=== PATIENT | female | born 1985 | race Caucasian/White ===

== ENCOUNTER → 2020-05-25 13:03 | Outpatient (BNVA) | payer OTHER, SELFPAY | PROVIDERS: PCP Physician Assistant Medical; Referring Provider Physician Assistant Medical; Visit Provider Student in an Organized Health Care Education/Training Program | DX: Z76.89 Persons encountering health services in other specified circumstances (principal) ==

== ENCOUNTER 2020-06-30 13:53 | Outpatient (REF) | payer OTHER, SELFPAY ==
--- NOTE | 2020-06-30 13:57 | MR_ITS ---
EXAMINATION: MR PELVIS WITHOUT CONTRAST CLINICAL INFORMATION: Lower back pain at multiple sites. Polyarthralgia. COMPARISON: Radiographs from 11/07/2019 TECHNIQUE: Multisequence multidimensional MR acquisition of the pelvis is performed without IV contrast. FINDINGS: There is no fracture or malalignment. No bone marrow signal abnormality. The sacrum is intact. The sacroiliac joints are symmetric. No fluid along the sacroiliac joints. No abnormal sclerosis. No fusion. No erosions. The hips are appropriately aligned. Joint spaces are maintained. No hip joint effusion. The pelvic musculature is symmetric. No muscular edema. Trace fluid is seen bilaterally adjacent to the femoral greater trochanters. This may represent mild trochanteric bursitis versus tendinosis of the gluteus medius/minimus bilaterally. Anteverted uterus. 0.9 cm. No uterine mass. No adnexal mass. Numerous bilateral ovarian follicles are noted. The largest on the right measures 1.5 cm. There are at least 10 follicles seen in both ovaries. There is trace pelvic free fluid which is likely physiologic. No lymphadenopathy. No abdominal wall hernia. The remaining visualized intrapelvic structures show no acute abnormality. MR/MR pelvis wo con IMPRESSION: 1. No suspicious osseous abnormality. No bone marrow signal abnormality. Normal appearance of the sacroiliac joints. 2. Mild edema seen overlying the greater trochanter of the femurs bilaterally. This may represent mild trochanteric bursitis versus tendinosis of the gluteus medius/minimus. 3. Multiple bilateral ovarian follicles are seen. Correlate for PCOS.
== END 2020-06-30 13:54 | disposition home or self-care (01) ==
LOC: HO.MRI 13:53
PROVIDERS: PCP Pediatrics; Visit Provider Student in an Organized Health Care Education/Training Program
DX: M54.5 Low back pain (principal); M25.50 Pain in unspecified joint; L40.9 Psoriasis, unspecified
CPT/HCPCS: 72195

== ENCOUNTER → 2020-08-24 13:42 | Outpatient (BNVA) | payer OTHER, SELFPAY | PROVIDERS: PCP Pediatrics; Visit Provider Student in an Organized Health Care Education/Training Program | DX: M25.50 Pain in unspecified joint (principal); L40.9 Psoriasis, unspecified; M54.5 Low back pain | CPT/HCPCS: 99212 ==

== ENCOUNTER → 2020-10-20 11:12 | Outpatient (BNVA) | payer OTHER, SELFPAY | PROVIDERS: Visit Provider Student in an Organized Health Care Education/Training Program | DX: M25.50 Pain in unspecified joint (principal); M54.5 Low back pain; L40.9 Psoriasis, unspecified | CPT/HCPCS: 99212 ==

== ENCOUNTER → 2021-01-27 11:37 | Outpatient (BNVA) | payer OTHER, SELFPAY | PROVIDERS: PCP Physician Assistant Medical; Visit Provider Nurse Practitioner Family | DX: M25.50 Pain in unspecified joint (principal); L40.9 Psoriasis, unspecified | CPT/HCPCS: 99212 ==

== ENCOUNTER 2021-04-07 11:24 | Outpatient (REF) | payer OTHER, SELFPAY ==
[2021-04-07 12:20] LABS: MANUAL DIFF FLAG NO
[2021-04-07 13:38] LABS: Basophils Absolute Auto 0.1 X10*3/uL (0.0-0.2); Eosinophils Absolute Auto 0.2 X10*3/uL (0.0-0.4); Eosinophils Percent Auto 2.6 % (0-4); Hematocrit 37.4 % (37.0-47.0); Imm Gran Abs Auto 0.02 X10*3/uL (0.00-0.03); Imm Gran Pct Auto 0.3 % (0.0-0.4); Lymphocytes Absolute Auto 2.3 X10*3/uL (1.2-4.9); Lymphocytes Percent Auto 33.3 % (20-40); Mean Corpuscular HGB Conc 34.8 g/dl (31.0-35.0); Mean Corpuscular Hemoglobin 35.4 pg (27.0-33.0); Mean Corpuscular Volume 101.9 fL (80.0-98.0); Mean Platelet Volume 11.1 fL (9.4-12.3); Monocytes Absolute Auto 0.6 X10*3/uL (0.1-1.2); Monocytes Percent Auto 8.3 % (2-11); Neutrophils Absolute Auto 3.8 x10*3/uL (2.0-8.3); Neutrophils Percent Auto 54.5 % (45-73); Platelet Count 233 X10*3/uL (160-400); Red Blood Count 3.67 X10*6/uL (4.20-5.50); Red Cell Distribution Width 12.1 % (11.0-16.0)
[2021-04-07 14:03] LABS: Alanine Aminotransferase 11 U/L (0-31); Albumin Level 4.3 g/dL (3.5-5.0); Alkaline Phosphatase 80 U/L (39-117); Anion Gap 13 (12-20); Aspartate Amino Transferase 18 U/L (5-31); Bilirubin Total 0.6 mg/dL (0.0-1.0); Blood Urea Nitrogen 5 mg/dL (9-16); C Reactive Protein 0.07 mg/dL (< or = 0.50); Carbon Dioxide 26 mmol/L (22-29); Chloride 101 mmol/L (96-108); Estimated Glomerular Filt Rate > 60; Glucose Random 89 mg/dL (60-115); Potassium 3.7 mmol/L (3.3-5.1); Sodium 136 mmol/L (135-145); Total Protein 7.4 g/dL (6.5-8.0)
[2021-04-07 14:49] LABS: Erythrocyte Sedimentation Rate 13 MM/HR (0-20)
== END 2021-04-07 11:25 | disposition home or self-care (01) ==
LOC: HO.LAB 11:24
PROVIDERS: PCP Pediatrics; Visit Provider Nurse Practitioner Family
DX: L40.9 Psoriasis, unspecified (principal); M25.50 Pain in unspecified joint; F17.210 Nicotine dependence, cigarettes, uncomplicated; Z79.899 Other long term (current) drug therapy
CPT/HCPCS: 36415; 80053; 85025; 85652; 86140; 99212

== ENCOUNTER 2021-10-19 12:57 | Outpatient (REF) | payer OTHER, SELFPAY ==
[2021-10-19 13:51] LABS: MANUAL DIFF FLAG NO
[2021-10-19 14:19] LABS: Basophils Percent Auto 0.5 % (0-2); Eosinophils Percent Auto 0.3 % (0-4); Hematocrit 37.3 % (37.0-47.0); Hemoglobin 12.9 g/dl (12.0-16.0); Imm Gran Abs Auto 0.01 X10*3/uL (0.00-0.03); Imm Gran Pct Auto 0.2 % (0.0-0.4); Lymphocytes Absolute Auto 2.1 X10*3/uL (1.2-4.9); Lymphocytes Percent Auto 36.5 % (20-40); Mean Corpuscular HGB Conc 34.6 g/dl (31.0-35.0); Mean Corpuscular Volume 104.2 fL (80.0-98.0); Mean Platelet Volume 10.6 fL (9.4-12.3); Monocytes Absolute Auto 0.5 X10*3/uL (0.1-1.2); Neutrophils Absolute Auto 3.2 x10*3/uL (2.0-8.3); Neutrophils Percent Auto 54.5 % (45-73); Platelet Count 247 X10*3/uL (160-400); Red Blood Count 3.58 X10*6/uL (4.20-5.50); Red Cell Distribution Width 12.2 % (11.0-16.0); White Blood Count 5.8 X10*3/uL (4.8-10.8)
[2021-10-19 14:50] LABS: Alanine Aminotransferase 23 U/L (0-31); Alkaline Phosphatase 82 U/L (39-117); Anion Gap 14 (12-20); Aspartate Amino Transferase 31 U/L (5-31); Bilirubin Total 0.4 mg/dL (0.0-1.0); Blood Urea Nitrogen 6 mg/dL (9-16); C Reactive Protein 0.09 mg/dL (< or = 0.50); Calcium 9.6 mg/dL (8.4-10.2); Carbon Dioxide 27 mmol/L (22-29); Chloride 103 mmol/L (96-108); Estimated Glomerular Filt Rate > 60; Glucose Random 76 mg/dL (60-115); Potassium 3.9 mmol/L (3.3-5.1); Sodium 140 mmol/L (135-145); Total Protein 7.3 g/dL (6.5-8.0)
[2021-10-19 15:00] LABS: Erythrocyte Sedimentation Rate 19 MM/HR (0-20)
== END 2021-10-19 12:58 | disposition home or self-care (01) ==
LOC: HO.LAB 12:57
PROVIDERS: PCP Pediatrics; Visit Provider Nurse Practitioner Family
DX: M25.50 Pain in unspecified joint (principal); L40.9 Psoriasis, unspecified
CPT/HCPCS: 36415; 80053; 85025; 85652; 86140; 99212

== ENCOUNTER 2022-01-26 15:13 | Outpatient (REF) | payer OTHER, SELFPAY ==
--- NOTE | ~2022-01-26 | XR_ITS ---
EXAMINATION: XR LUMBOSACRAL SPINE CLINICAL INFORMATION: Lower back pain. COMPARISON: Lumbar spine radiographs dated 11/07/2019. TECHNIQUE: AP and lateral views of the lumbar spine and lateral view of the lumbosacral junction. FINDINGS: Vertebral body heights and alignment are normal. The lumbar disc spaces are well-maintained. No acute fracture or spondylolisthesis is seen. There is multi-level mild lower thoracic and lumbar spondylosis. A small limbus vertebra is incidentally noted at the anterior aspect of the L4 upper endplate. The posterior elements are intact. The paravertebral soft tissues are unremarkable. XR/XR lumbar spine 2-3V IMPRESSION: 1. No acute fracture or spondylolisthesis is seen. 2. The lumbar disc spaces are well-maintained. 3. There is multi-level mild lower thoracic and lumbar spondylosis.
[2022-01-26 15:38] LABS: MANUAL DIFF FLAG NO
[2022-01-26 16:12] LABS: Basophils Absolute Auto 0.1 X10*3/uL (0.0-0.2); Basophils Percent Auto 0.9 % (0-2); Eosinophils Absolute Auto 0.1 X10*3/uL (0.0-0.4); Eosinophils Percent Auto 0.9 % (0-4); Hematocrit 38.4 % (37.0-47.0); Hemoglobin 13.1 g/dl (12.0-16.0); Imm Gran Abs Auto 0.03 X10*3/uL (0.00-0.03); Imm Gran Pct Auto 0.3 % (0.0-0.4); Lymphocytes Absolute Auto 1.9 X10*3/uL (1.2-4.9); Lymphocytes Percent Auto 19.4 % (20-40); Mean Corpuscular HGB Conc 34.1 g/dl (31.0-35.0); Mean Corpuscular Hemoglobin 35.6 pg (27.0-33.0); Mean Corpuscular Volume 104.3 fL (80.0-98.0); Mean Platelet Volume 10.3 fL (9.4-12.3); Monocytes Absolute Auto 0.6 X10*3/uL (0.1-1.2); Monocytes Percent Auto 6.4 % (2-11); Neutrophils Percent Auto 72.1 % (45-73); Platelet Count 314 X10*3/uL (160-400); Red Blood Count 3.68 X10*6/uL (4.20-5.50); Red Cell Distribution Width 12.7 % (11.0-16.0); White Blood Count 9.8 X10*3/uL (4.8-10.8)
[2022-01-26 16:41] LABS: Alanine Aminotransferase 17 U/L (0-31); Aspartate Amino Transferase 23 U/L (5-31); C Reactive Protein 0.05 mg/dL (< or = 0.50); Estimated Glomerular Filt Rate > 60
[2022-01-26 16:50] LABS: Erythrocyte Sedimentation Rate 11 MM/HR (0-20)
== END 2022-01-26 15:14 | disposition home or self-care (01) ==
LOC: HO.XRAY 15:13
PROVIDERS: Visit Provider Nurse Practitioner Family
DX: M54.50 Low back pain, unspecified (principal); L40.9 Psoriasis, unspecified; M25.50 Pain in unspecified joint; Z79.899 Other long term (current) drug therapy
CPT/HCPCS: 36415; 72100; 82565; 84450; 84460; 85025; 85652; 86140; 99212

== ENCOUNTER 2022-12-29 07:37 | Outpatient (AMB) | payer OTHER, SELFPAY ==
[2022-12-29 07:44] VITALS: PULSE 78; TEMP 36.9; BMI 20.4
--- NOTE | 2022-12-29 07:44 | A.OFFVIS_ITS ---
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 She was last seen by Sabrina Dee in 01/2022. Patient states that recently she was switched from Tremfya to Skyrizi She has been on very since September of 2022. She states that her donor recruiter switched her from Tremfya to Skyrizi because scar easy is done every 3 months. Patient states that she continues to get intermittent swelling of her knees, ankles, feet, hands. Usually precipitated by activity. She does not have any recurrent psoriasis rash. [facility] Medical History Polyarthralgia Psoriasis Social History Alcohol intake: current Patient Tobacco Use Status: Current someday Tobacco user Years Smoked: 10 e-Cigarette/Vaping Use: Currently Using Substance Use Type: Marijuana Female Reproductive History Menstrual Total pregnancies: 2 Full term: 1 Ab induced: 1 Review of Systems Musc Reports back pain, Reports arthralgias, Reports joint swelling and Reports stiffness Physical Exam Const General: cooperative, healthy appearing and comfortable Nutritional Appearance: average body habitus Orientation/consciousness: patient oriented x3 Limitations: no limitations HEENT Head: Yes normocephalic and Yes atraumatic Mouth: moist mucous membranes Resp Effort & Inspection: normal respiratory effort and able to speak in complete se ntences Auscultation: clear to auscultation bilaterally Cardio Rate: regular rate Rhythm: regular rhythm Heart sounds: S1 normal heart sound present GI Inspection: No distended Palpation (GI): Soft to palpation and nontender Neuro General: patient oriented x3 Extrem Other: Mildly tender PIP is and DIPs bilaterally without swelling. Few tender MTPs bilaterally Raudel test 10 to 14 cm Negative Fabere test bilaterally Multiple tender points in the paraspinal muscles. Results Reviewed Results Reviewed: MR/MR pelvis wo con IMPRESSION: ? 1. No suspicious osseous abnormality. No bone marrow signal abnormality. Normal appearance of the sacroiliac joints. 2. Mild edema seen overlying the greater trochanter of the femurs bilaterally. This may represent mild trochanteric bursitis versus tendinosis of the gluteus medius/minimus. 3. Multiple bilateral ovarian follicles are seen. Correlate for PCOS. XR/XR lumbar spine 2-3V IMPRESSION: ? 1. No acute fracture or spondylolisthesis is seen. ? 2. The lumbar disc spaces are well-maintained. ? 3. There is multi-level mild lower thoracic and lumbar spondylosis. Assessment & Plan Assessment & Plan (1) Polyarthralgia: Comment: Taltz-dates unknown Methotrexate-dates unknown Otezla-dates unknown Cosentyx- September 2019 Enbrel-date unknown Cimzia- October 2019- February 2021 Tremfya: - February 2021-September 2022 Skyrizi September 2022-present (switched from Tremfya due to less frequent injections) Sulfasalazine: July 2020-September 2021- self stopped Code(s): M25.50 - Pain in unspecified joint Plan: This is a 37-year-old female with psoriasis and psoriatic arthritis who presents for evaluation for follow-up. She was last evaluated 01/2022 by Sabrina Dee. Patient continues to get intermittent swollen and tender joints. Usually pre cipitated by activity. On exam today patient does not have any swollen joints but she has multiple tender PIP is, the IP's and MTPs. She showed me pictures of swollen knees and ankles and feet consistent with synovitis. Patient has been on numerous biologic DMARDs, according to patient however she continues to get swollen and tender joints. Discussed multiple options with patient.. We discussed going back on sulfasalazine but patient stated that she had side effects to it. Patient also does not want to retry methotrexate. We discussed leflunomide but patient is sexually active and uses condoms for contraception. I explained that if leflunomide is to be tried patient should have a more reliable method of contraception. Advised patient to start taking meloxicam 7.5 mg daily as a standing dose and had an additional 7.5 mg as needed for joint pain and swelling. Check labs today. Follow-up in 3 months (2) Psoriasis: Code(s): L40.9 - Psoriasis, unspecified Plan: Follows up regularly with Dermatology. Currently on [facility] Plan I spent 29 minutes reviewing patient's chart, evaluating patient, ordering diagnostic workup, counseling patient and documenting in the chart Orders: Orders Comprehensive Met. Panel Today L40.50 - Arthropathic psoriasis, unspecified C Reactive Protein Today L40.50 - Arthropathic psoriasis, unspecified Complete Blood Count Auto Diff Today L40.50 - Arthropathic psoriasis, unspecified Erythrocyte Sedimentation Rate Today L40.50 - Arthropathic psoriasis, unspecified Medications: New meloxicam take an additional tablet when you have a swollen joint 7.5 mg PO DAILY 30 tabs 2RF Coding Level of Care Code Est Pt Level 4 (74150) Diagnoses Polyarthralgia M25.50 Psoriasis L40.9
== END 2022-12-29 08:15 | disposition home or self-care (01) ==
PROVIDERS: PCP Pediatrics; Visit Provider Student in an Organized Health Care Education/Training Program
DX: M25.50 Pain in unspecified joint (principal); L40.9 Psoriasis, unspecified
CPT/HCPCS: 99214

== ENCOUNTER → 2022-12-29 07:37 | Outpatient (BNVA) | payer OTHER, SELFPAY | PROVIDERS: PCP Pediatrics; Visit Provider Student in an Organized Health Care Education/Training Program | DX: M25.50 Pain in unspecified joint (principal); L40.9 Psoriasis, unspecified | CPT/HCPCS: 99212 ==

== ENCOUNTER 2022-12-29 08:29 | Outpatient (REF) | payer OTHER, SELFPAY ==
[2022-12-29 10:57] LABS: MANUAL DIFF FLAG NO
[2022-12-29 11:02] LABS: Basophils Absolute Auto 0.1 X10*3/uL (0.0-0.2); Basophils Percent Auto 1.2 % (0-2); Eosinophils Absolute Auto 0.1 X10*3/uL (0.0-0.4); Eosinophils Percent Auto 1.2 % (0-4); Hematocrit 38.9 % (37.0-47.0); Hemoglobin 13.5 g/dl (12.0-16.0); Imm Gran Abs Auto 0.01 X10*3/uL (0.00-0.03); Imm Gran Pct Auto 0.2 % (0.0-0.4); Lymphocytes Absolute Auto 2.5 X10*3/uL (1.2-4.9); Lymphocytes Percent Auto 42.4 % (20-40); Mean Corpuscular HGB Conc 34.7 g/dl (31.0-35.0); Mean Corpuscular Hemoglobin 35.5 pg (27.0-33.0); Mean Corpuscular Volume 102.4 fL (80.0-98.0); Mean Platelet Volume 10.6 fL (9.4-12.3); Monocytes Absolute Auto 0.5 X10*3/uL (0.1-1.2); Monocytes Percent Auto 7.9 % (2-11); Neutrophils Absolute Auto 2.8 x10*3/uL (2.0-8.3); Neutrophils Percent Auto 47.1 % (45-73); Platelet Count 242 X10*3/uL (160-400); Red Cell Distribution Width 11.9 % (11.0-16.0); White Blood Count 5.8 X10*3/uL (4.8-10.8)
[2022-12-29 11:39] LABS: Erythrocyte Sedimentation Rate 10 MM/HR (0-20)
[2022-12-29 20:13] LABS: Alanine Aminotransferase 10 U/L (0-31); Albumin Level 4.4 g/dL (3.5-5.0); Alkaline Phosphatase 68 U/L (39-117); Anion Gap 15 (12-20); Aspartate Amino Transferase 14 U/L (5-31); Bilirubin Total 0.2 mg/dL (0.0-1.0); Blood Urea Nitrogen 6 mg/dL (9-16); C Reactive Protein < 0.04 mg/dL (< or = 0.50); Calcium 9.3 mg/dL (8.4-10.2); Carbon Dioxide 22 mmol/L (22-29); Chloride 107 mmol/L (96-108); Estimated Glomerular Filt Rate > 60; Glucose Random 95 mg/dL (60-115); Potassium 3.7 mmol/L (3.3-5.1); Sodium 140 mmol/L (135-145); Total Protein 7.5 g/dL (6.5-8.0)
== END 2022-12-29 08:30 | disposition home or self-care (01) ==
LOC: HO.10HDL 08:29
PROVIDERS: Visit Provider Student in an Organized Health Care Education/Training Program
DX: L40.50 Arthropathic psoriasis, unspecified (principal); M25.50 Pain in unspecified joint; Z79.899 Other long term (current) drug therapy
CPT/HCPCS: 36415; 80053; 85025; 85652; 86140